=== PATIENT | male | born 1955 | race Caucasian/White ===

== ENCOUNTER 2017-09-07 18:10 | Observation (INO) | payer BC, SELFPAY ==
[2017-09-07 18:43] LABS: #Basophils 0.1 thou/uL (0.0-0.2); #Eosinphils 0.4 thou/uL (0.0-0.7); #Lymphocytes 1.4 thou/uL (1.20-3.40); #Monocytes 0.9 thou/uL (0.11-0.59); #Neutrophils 6.2 thou/uL (1.40-6.50); %Basophils 0.6 % (0.0-1.0); %Eosinophils 4.7 % (0.0-10.0); %Lymphocytes 16.1 % (21.0-51.0); %Monocytes 9.8 % (0.0-10.0); Hematocrit 49.2 % (42.0-52.0); Mean Platelet Volume 7.2 fL (7.4-10.4); Red Blood Cell (RBC) Count 5.49 mill/uL (4.70-6.10); White Blood Cell (WBC) Count 8.9 thou/uL (4.8-10.8)
[2017-09-07 19:04] LABS: ALT (SGPT) 24 U/L (8-55); AST (SGOT) 24 U/L (5-34); Alkaline Phosphatase 80 U/L (40-150); Anion Gap 13 mmol/L (10-20); BUN (Urea Nitrogen) 18 mg/dL (8.4-25.7); Bilirubin, Total 0.8 mg/dL (0.2-1.2); Calc. Creatinine Clearance 0 mL/min (70-130); Carbon Dioxide 25 mmol/L (23-31); Chloride 103 mmol/L (98-107); Estimated GFR-MDRD 72; Globulin 3.2 g/dL (2.4-3.5); Protein, Total 7.3 g/dL (5.8-8.1)
[2017-09-07 19:10] LABS: Troponin I Less than 0.010 ng/mL (< 0.028)
[2017-09-07] MEDS ORDERED: Nitroglycerin 0.4 MG TAB (25 Tab Bottle) ONE (19:28)
--- NOTE | 2017-09-07 19:40 | RAD ---
PORTABLE CHEST: 09/07/17 COMPARISON: 06/27/17 study. HISTORY: Crushing chest pain. Heart size and mediastinum are within normal limits. The lungs are clear of infiltrates. No signific ant bony findings. IMPRESSION: No active intrathoracic disease. POS: [facility]
[2017-09-07 21:04] LABS: PTT 29.2 SEC (22.9-36.1); Prothrombin Time 13.7 SEC (12.0-14.7)
[2017-09-07 21:09] LABS: CK (CPK) 106 U/L (30-200); Lipase 22 U/L (8-78)
[2017-09-07 22:28] LABS: Troponin I Less than 0.010 ng/mL (< 0.028)
[2017-09-07] MEDS ORDERED: Acetaminophen 325 MG TAB PO PRN (22:51)
[2017-09-07] MEDS ORDERED: Ondansetron ODT 4 MG TAB PO PRN (22:51)
[2017-09-07] MEDS ORDERED: Nitroglycerin 0.4 MG TAB (25 Tab Bottle) PO PRN (22:51)
[2017-09-07] MEDS ORDERED: Bisacodyl 5 MG TAB PO PRN (22:51)
[2017-09-07 23:19] LABS: Hemoglobin A1c 4.9 % (4.0-6.0)
[2017-09-07 23:20] VITALS: BMI 23.7
[2017-09-07 23:22] LABS: Magnesium 2.2 mg/dL (1.6-2.6)
[2017-09-07 23:25] LABS: Phosphorus 3.4 mg/dL (2.3-4.7)
[2017-09-08 00:50] LABS: Troponin I Less than 0.010 ng/mL (< 0.028)
--- NOTE | 2017-09-08 03:10 | HP-2 ---
CODE STATUS: FULL. PRIMARY CARE PHYSICIAN: [facility]. ATTENDING: Dr. Smith. PGY1: Bernardino Geller MD CHIEF COMPLAINT: Chest pain. HISTORY OF PRESENT ILLNESS: This is a 62-year-old male that presents with chest pain that began around 1500 today. He states he was sitting in his chair and had an intense pressure that came over his left chest. He became diaphoretic and his vision became blurry. He states he took a nitro and it helped the pain. The same episode happened 30 minutes later, he took another nitro and then he called EMS. He states that he still has slight pain that comes and goes at times. He has no other complaints at this time. He did have a recent stent that was placed in 04/2017 and he has had a vague chest pain that has been present since that time, but today it is different. PAST MEDICAL HISTORY: significant for CAD with stent placement in 04/2017, hyperlipidemia, and hypertension. PAST SURGICAL HISTORY: Cholecystectomy and the stent placement in 04/2017. ALLERGIES: No known drug allergies. MEDICATIONS: Atorvastatin 10 mg, Effient 10 mg, aspirin 81 mg, and HCTZ 25 mg. FAMILY HISTORY: Significant for hypertension. SOCIAL HISTORY: The patient is a current everyday chewing tobacco user that chews between half to one can per day. He denies any alcohol or drug use. REVIEW OF SYSTEMS: General: He does admit to chills. He denies any fevers, appetite changes, night sweats, or fatigue. Eyes: He does admit to blurry vision changes during the pain along with left eye pain during the episode. ENT : Denies nasal congestion, rhinorrhea. He does admit to a sore throat. Respiratory: Denies cough, congestion, shortness of breath. Cardiovascular: Does admit to chest pains. He denies any palpitations, edema, orthopnea. Gastrointestinal: He admits to nausea. Denies any vomiting, diarrhea, abdominal pain, or GI bleeding. He does admit to constipation. Genitourinary: Denies incontinence, dysuria. Skin: Denies any rashes, lesions. Musculoskeletal: Denies any pain, tenderness, stiffness, swelling to the joints. Neurologic: Denies any weakness, numbness, syncope or seizures. Psychiatric: He denies anxiety or depression. PHYSICAL EXAMINATION: VITAL SIGNS: Blood pressure was 110/73, pulse 71, respiration 16, temperature max 97.4, pulse ox 99% on room air, current weight is 80 kilos. GENERAL: He is alert and oriented x4. He is appropriately interactive. HEENT: PERRLA. Conjunctivae within normal limits. ENT: Nasal mucosa and oropharynx within normal limits. He looks like he has poor dentition with multiple teeth missing. NECK: Supple, without lymphadenopathy, without thyromegaly. CARDIOVASCULAR: Regular rate and rhythm, no murmur, no gallops. Radial and pedal pulses equal bilaterally. RESPIRATORY: Normal effort, no retractions, clear lungs to auscultation bilaterally. SKIN: Warm and dry. No cyanosis. No lesions. ABDOMEN: Soft, nontender to palpation. Bowel sounds are present x4. No mass or distention. EXTREMITIES: No clubbing, cyanosis, or edema. MUSCULOSKELETAL: Structure, tone. Muscle strength and range of motion within normal limits. NEUROLOGIC: No focal neurologic deficits. Sensation was within normal limits. Cranial nerves II through XII are grossly intact. GCS was 15. PSYCHIATRIC: Appropriate. LABORATORY DATA: White blood cell count 8.9, platelet count 219, hemoglobin 16.6, hematocrit 49.2. Sodium 137, potassium 3.9, chloride 103, bicarbonate 25 , BUN 18, creatinine 1.04, glucose 89, calcium 9.0, total protein 7.3, albumin 4.1, total bilirubin 0.8, AST 24, ALT 24, alkaline phosphatase 80. CK-MB was 2.3, troponin I was less than 0.01. EKG showed normal sinus rhythm. Chest x- ray showed nothing acute. ASSESSMENT AND PLAN: A 62-year-old male with past medical history significant for stent placement in April, presents with: 1. Possible unstable angina. We will trend his troponins x2. Admit him to tele monitoring. Consider cardiology consult in the morning for a stress versus a catheterization given aspirin and nitro. Get a TSH, a BNP, a mag, and a phos, and requests his records from [facility], where he was scheduled to have a catheterization on 09/19. 2. Coronary artery disease, status post stent placement. We will continue his statin and increase that to a high-intensity statin therapy. Continue the aspirin, continue the Effient, but we will hold that in the morning depending on what they decide to do for procedure. 3. Hyperlipidemia. We will continue statin. We will increase his statin to the intensive therapy actually if you want to cross out, continue statin. 4. Hypertension. Continue his home meds. 5. Tobacco abuse. He is advised to quit and will offer him a nicotine patch. 6. Constipation. We will give him a laxative as needed, but he said he did not want to take any medicine at this time. DISPOSITION LENGTH OF HOSPITAL STAY: We will observe in 1 day. Symptomatic medication will be provided. History and physical exam as well as management have been discussed with Dr. Smith. Patient seen by me on rounds with residents. I agree with hodgson portions of H&P above. Additional information is in handwritten note in the chart. LIV AWAD
[2017-09-08 04:55] LABS: #Eosinphils 0.5 thou/uL (0.0-0.7); #Monocytes 0.9 thou/uL (0.11-0.59); #Neutrophils 5.2 thou/uL (1.40-6.50); %Basophils 0.4 % (0.0-1.0); %Eosinophils 5.9 % (0.0-10.0); %Lymphocytes 23.3 % (21.0-51.0); Mean Platelet Volume 7.3 fL (7.4-10.4); Red Blood Cell (RBC) Count 5.22 mill/uL (4.70-6.10); White Blood Cell (WBC) Count 8.6 thou/uL (4.8-10.8)
[2017-09-08 05:16] LABS: Anion Gap 7 mmol/L (10-20); BUN (Urea Nitrogen) 18 mg/dL (8.4-25.7); Calc. Creatinine Clearance 84 mL/min (70-130); Calcium 9.1 mg/dL (7.8-10.44); Carbon Dioxide 31 mmol/L (23-31); Chloride 100 mmol/L (98-107); Cholesterol 102 mg/dl (< 200 Desired); Estimated GFR-MDRD 78; LDL Cholesterol, Calculated 53 mg/dL
--- NOTE | 2017-09-08 05:53 | PDOC.FM ---
- Subjective Subjective: Patient doing well this morning, has not had any more of the substernal chest pain that he had last night. States he wants to leave as soon as possible. Otherwise no concerns, no acute events since admission. Denies fever, chills, dyspnea, n/v/d. Endorses constipation. - Objective MAR Reviewed: Yes Vital Signs & Weight: Vital Signs (12 hours) Temp Pulse Resp BP Pulse Ox 09/08/17 05:34 97.9 F 68 16 122/77 96 09/07/17 22:51 95 09/07/17 22:14 97.9 F 59 L 16 112/71 95 09/07/17 22:05 97.9 F 59 L 16 Weight Weight 77.61 kg I&O: 09/06/17 09/07/17 09/08/17 06:59 06:59 06:59 Intake Total 240 Balance 240 Result Diagrams: 09/08/17 04:21 09/08/17 04:21 EKG Reviewed by me: Yes (NSR) Radiology Reviewed by me: Yes <Artem Wilkerson - Last Filed: 09/08/17 07:41> - Objective Vital Signs & Weight: Vital Signs (12 hours) Temp Pulse Resp BP Pulse Ox 09/08/17 05:34 97.9 F 68 16 122/77 96 09/07/17 22:51 95 09/07/17 22:14 97.9 F 59 L 16 112/71 95 09/07/17 22:05 97.9 F 59 L 16 Weight Weight 171 lb 1.6 oz I&O: 09/07/17 09/08/17 09/09/17 06:59 06:59 06:59 Intake Total 240 Balance 240 Result Diagrams: 09/08/17 04:21 09/08/17 04:21 <Bautista Smith - Last Filed: 09/08/17 08:21> Phys Exam - Physical Examination Constitutional: NAD HEENT: moist MMs, sclera anicteric Neck: no JVD, supple, full ROM Respiratory: no wheezing, no rales, no rhonchi, clear to auscultation bilateral Cardiovascular: RRR, no significant murmur, no rub Gastrointestinal: soft, non-tender, no distention, positive bowel sounds Musculoskeletal: no edema, pulses present Neurological: non-focal, moves all 4 limbs Psychiatric: normal affect, A&O x 3 <Artem Wilkerson - Last Filed: 09/08/17 07:41> Dx/Plan (1) Unstable angina Status: Acute Plan: Suspicious for unstable angina -Consulting cardiology this morning -ASA, nitro -TSH was normal, BNP normal (2) CAD (coronary artery disease) Code(s): I25.10 - ATHSCL HEART DISEASE OF [place] CORONARY ARTERY W/O ANG PCTRS Status: Acute Plan: statin, asa, holding effient today (3) Hyperlipidemia Code(s): E78.5 - HYPERLIPIDEMIA, UNSPECIFIED Status: Acute Plan: Cont statin, asa -holding effient today (4) Hypertension Code(s): I10 - ESSENTIAL (PRIMARY) HYPERTENSION Status: Acute Plan: NPO currently, BP currently 110/73 Consulting cardiology, will follow recs -will likely start home meds today (5) Constipated Code(s): K59.00 - CONSTIPATION, UNSPECIFIED Status: Acute Plan: Laxative as needed (6) Tobacco abuse Code(s): Z72.0 - TOBACCO USE Status: Acute Plan: Recommended cessation <Artem Wilkerson - Last Filed: 09/08/17 07:41> Attending Addendum - Attending Addendum I personally evaluated the patient and discussed the management with Dr. Wilkerson I agree with the History, Examination, Assessment and Plan documented above. <Bautista Smith - Last Filed: 09/08/17 08:21>
[2017-09-08 08:27] VITALS: TEMP 97.5
[2017-09-08 11:45] VITALS: BP 126/83
--- NOTE | 2017-09-08 17:07 | CON ---
DATE OF CONSULTATION: 09/08/2017 CARDIOLOGY CONSULTATION REASON FOR CONSULTATION: Chest pain. HISTORY OF PRESENT ILLNESS: Mr. Simmons is a very pleasant 62-year-old white gentleman, who comes to the hospital for chest pain. He was at home and felt sudden onset of chest tightness in the mid sternal area with diaphoresis, so he decided to come in. He took nitroglycerin pill sublingual and the pain went away within a minute. He had the pain again in 30 minutes later and that is when he decided to come in. He has been pain-free since he was admitted and he ruled out with 3 negative en zymes. He does have a history of coronary artery disease. He had a heart catheterization back in [facility] of this year in [place] by [facility]. He stented an OM3 at a bifurcation and jailed a branch of the OM3, but had good blood flow at the end of the study. He states that the symptoms he had at that time never really got better and he continued to have chest pain and is actually was scheduled to have a heart catheterization to reevaluate the stent and the rest of his arteries sometime in [facility]. He recently moved to the [facility] to live with his daughter and wants to establish care [facility] with a shearing machine operator. PAST MEDICAL HISTORY: 1. Coronary artery disease as above. 2. Hyperlipidemia. 3. Hypertension. PAST SURGICAL HISTORY: 1. Cholecystectomy. 2. Stent placement as above. OUTPATIENT MEDICATIONS: 1. Atorvastatin 10 mg a day. 2. Effient 10 mg a day. 3. Aspirin 81 mg a day. 4. Hydrochlorothiazide 25 mg a day. ALLERGIES: No known drug allergies. He did have a reaction to AMLODIPINE, he had the leg swelling. FAMILY HISTORY: Hypertension, otherwise noncontributory. SOCIAL HISTORY: He chews tobacco every day. No alcohol or drug use. REVIEW OF SYSTEMS: A 12-point review of systems was done and is all negative unless stated in the h istory of present illness. PHYSICAL EXAMINATION: VITAL SIGNS: Temperature 97.5, pulse 66, respiration rate 18, satting 95% on room air, blood pressu re 126/83. GENERAL: Awake, alert, oriented x3, in no distress. HEENT: Normocephalic, atraumatic. NECK: Supple. LUNGS: Clear. CARDIOVASCULAR: S1, S2, no S3 or S4, no murmurs or rubs. ABDOMEN: Soft, positive bowel sounds. EXTREMITIES: No edema. SKIN: Warm and dry. LABORATORY WORK: Reviewed. Troponin is negative x3. CBC is unremarkable. Coagulations were unrem arkable and CMP was normal. LDL was 53, HDL was 30. Lipase was normal. Triglycerides of 94. ASSESSMENT AND PLAN: 1. Chest pain: Concerning for angina. He has stable angina, which may be related to the jailed ob tuse marginal or the stent that he recently had, it would be very unlikely that the stent is a probl em as he had a drug-eluting stent. He has a Resolute 3.0 x26 mm placed in that obtuse marginal. We recommended to start Imdur for medical management of his angina and do a heart catheterization. He would like to go home today and set this up as an outpatient. We will plan on doing this in the week or two. He would like to transfer his care over here as he lives here now and is really mary d to keep driving to [place]. We will plan on scheduling him for a heart catheterization in the next [place] or two as he would like to do it as an outpatient. 2. He should be able to be discharged home today on a new regimen Imdur 30 mg a day only and stop t he hydrochlorothiazide, continue Effient, continue aspirin and statin. Thank you for letting us participate in the care of your patient. We will sign off for now.
--- NOTE | 2017-09-08 21:55 | DIS-2 ---
DATE OF ADMISSION: 09/07/2017 DATE OF DISCHARGE: 09/08/2017 RESIDENT: Dr. Artem Wilkerson. ADMITTING ATTENDING: Dr. Smith. DISCHARGE ATTENDING: Dr. Smith. CONSULTATIONS: Cardiology on 09/08/2017, Dr. Castillo. PROCEDURES: Chest x-ray: Impression: No acute intrathoracic disease. PRIMARY DIAGNOSIS: Chest pain, concerning for angina. SECONDARY DIAGNOSES: 1. Hypertension. 2. Hyperlipidemia. 3. Coronary artery disease. 4. Tobacco abuse. DISCHARGE MEDICATIONS: 1. Aspirin 81 mg p.o. daily. 2. Effient 10 mg p.o. daily. 3. Atorvastatin calcium 10 mg p.o. daily. NEW HOME MEDICATIONS: 1. Isosorbide mononitrate. 2. Imdur ER 30 mg p.o. daily. 3. Nitroglycerin 0.4 mg p.o. q.5 minute p.r.n. DISCONTINUED MEDICATIONS: Hydrochlorothiazide 25 mg p.o. daily. HISTORY OF PRESENT ILLNESS AND HOSPITAL COURSE: Mr. Esdras Simmons is a 62-year-old male who pres ented with chest pain that began around 3:00 the day of admission on 09/07/2017. He states that he was sitting in his chair and had intense pressure that came over his left chest. He became diaphore tic and his vision became blurry. States that he took nitro and it improved the pain. He had the s mary type of episode happened 30 minutes later, he took another nitro and called EMS. He states that he currently still has slight pain that comes and goes at times. He did have a recent stent placed in 04/2017 and he has had vague chest pain that has been present since that time, but today his yamileth n is different. On admission, his blood pressure was 110/73, pulse 71, respiratory rate 16, T-max 9 7.4, pulse ox 99% on room air. Physical exam was unremarkable. Labs were significant for troponin less than 0.01. CK-MB was 2.3. EKG showed normal sinus rhythm. Chest x-ray showed no acute cardiopulmonary process. Cardiology w as consulted. Dr. Castillo stated that it is very unlikely that the stent is the problem, because he has had a drug-eluting stent placed. Dr. Castillo recommended starting Imdur for medical management a nd to get the heart catheterization done. The patient would like to accept the heart catheterizatio n with Dr. Castillo as he does not want to keep driving back and forth to [place] where his heart cathete rization is already scheduled. His new regimen will be Imdur 30 mg a day and stopping the hydrochlo rothiazide, while also continuing the Effient, aspirin, and statin. Patient was cleared for dischar ge from a cardiac standpoint on 09/08/2017 and he was in agreement with the plan to follow up outpat ient and do a heart catheterization scheduled. DISPOSITION: Guarded. DISCHARGE INSTRUCTIONS: 1. Location: Home. 2. Diet: Heart healthy diet. 3. Activity: As tolerated. 4. Followup: Follow up with Dr. Castillo on outpatient basis and primary care provider within 1-2 we eks.
== END 2017-09-08 14:55 | disposition home or self-care (01) ==
LOC: ERS 18:10 → 2SW 20:45
PROVIDERS: ADMIT Internal Medicine; ATTEND Internal Medicine
DX: R07.89 Other chest pain (principal); I10 Essential (primary) hypertension; E78.5 Hyperlipidemia, unspecified; I25.10 Atherosclerotic heart disease of native coronary artery without angina pectoris; F17.220 Nicotine dependence, chewing tobacco, uncomplicated; Z79.82 Long term (current) use of aspirin; Z79.899 Other long term (current) drug therapy; Z95.5 Presence of coronary angioplasty implant and graft; Z90.49 Acquired absence of other specified parts of digestive tract
CPT/HCPCS: 36415; 71010; 80048; 80053; 80061; 82553; 83036; 83690; 83735; 83880; 84100; 84443; 84484; 85025; 85610; 85730; 93005; 94760; G0378

== ENCOUNTER 2018-08-25 13:14 | Emergency (ER) | payer MEDICARE ==
[2018-08-25 13:58] LABS: #Eosinphils 0.1 thou/uL (0.0-0.7); #Monocytes 0.7 thou/uL (0.11-0.59); #Neutrophils 9.4 thou/uL (1.40-6.50); %Basophils 0.2 % (0.0-1.0); %Eosinophils 1.3 % (0.0-10.0); %Lymphocytes 8.7 % (21.0-51.0); %Monocytes 5.9 % (0.0-10.0); %Neutrophils 83.8 % (42.0-75.0); Hemoglobin 17.6 g/dL (14.0-18.0); Mean Corpuscular HGB CONC 32.5 g/dL (32.0-36.0); Mean Corpuscular Hemoglobin 29.8 pg (27.0-31.0); Mean Corpuscular Volume 91.5 fL (78.0-98.0); Platelet Count 196 thou/uL (130-400); RBC Distribution Width 12.3 % (11.5-14.5); White Blood Cell (WBC) Count 11.2 thou/uL (4.8-10.8)
[2018-08-25 14:16] LABS: Bilirubin Negative (Negative); Blood, Urine Large (Negative); Clarity CLOUDY (Clear); Glucose, Urine (Dipstick) Negative (Negative); Leukocyte Trace (Negative); Nitrite Negative (Negative); Protein, Urine (Dipstick) Trace mg/dL (Neg-Trace); Urobilinogen 0.2 mg/dL (0.2-1.0)
[2018-08-25 14:19] LABS: ALT (SGPT) 23 U/L (8-55); AST (SGOT) 19 U/L (5-34); Albumin 4.2 g/dL (3.4-4.8); Alkaline Phosphatase 72 U/L (40-150); Anion Gap 12 mmol/L (10-20); BUN (Urea Nitrogen) 15 mg/dL (8.4-25.7); Bilirubin, Total 0.9 mg/dL (0.2-1.2); Calc. Creatinine Clearance 0 mL/min (70-130); Calcium 9.2 mg/dL (7.8-10.44); Carbon Dioxide 26 mmol/L (23-31); Chloride 103 mmol/L (98-107); Estimated GFR-MDRD 64; Glucose 92 mg/dL (80-115); Lipase 34 U/L (8-78); Protein, Total 7.2 g/dL (5.8-8.1); Sodium 137 mmol/L (136-145)
[2018-08-25 14:21] LABS: Bacteria/HPF None Seen HPF (None Seen); Hyaline Casts/LPF 0-3 HYALINE CAST LPF (0-3 Hyaline); Pathc Cast-AUWi Flag 0.29 (0-2.49); RBC/HPF GREATER THAN 50-TNTC HPF (0-3); Squamous Epithelial None Seen HPF (0-3); WBC/HPF 0-3 HPF (0-3)
--- NOTE | 2018-08-25 14:23 | CT ---
CT ABDOMEN AND PELVIS NONCONTRAST: HISTORY: Right flank pain. FINDINGS: There is mild distention of the right renal collecting system to the level of a 0.7 cm calculus at th e right ureteropelvic junction. The right ureter beyond this point is decompressed along with the le ft renal collecting system, ureter, and urinary bladder. A 0.2 cm calculus is present within a nondi lated calyx at the superior pole left kidney. Lack of contrast limits evaluation for other abnormalities. Dystrophic calcification within the pros doherty gland. IMPRESSION: 1. Partial obstruction at a 7 mm right ureteropelvic junction calculus. 2. Tiny nonobstructing left renal calculus. POS: [facility]
== END 2018-08-25 14:53 | disposition home or self-care (01) ==
LOC: ERS 13:14
DX: N13.2 Hydronephrosis with renal and ureteral calculous obstruction (principal); I10 Essential (primary) hypertension; E78.00 Pure hypercholesterolemia, unspecified; F17.220 Nicotine dependence, chewing tobacco, uncomplicated; Z79.899 Other long term (current) drug therapy; Z79.82 Long term (current) use of aspirin
CPT/HCPCS: 36415; 74176; 80053; 81003; 81015; 83690; 85025

== ENCOUNTER 2018-08-27 10:55 | Day surgery (SDC) | payer MEDICARE ==
[2018-08-27 12:26] LABS: Anion Gap 12 mmol/L (10-20); BUN (Urea Nitrogen) 16 mg/dL (8.4-25.7); Calc. Creatinine Clearance 0 mL/min (70-130); Calcium 8.8 mg/dL (7.8-10.44); Carbon Dioxide 25 mmol/L (23-31); Chloride 93 mmol/L (98-107); Estimated GFR-MDRD 42; Glucose 77 mg/dL (80-115); Potassium 3.7 mmol/L (3.5-5.1); Sodium 126 mmol/L (136-145)
[2018-08-27] MEDS ORDERED: Iothalamate Meglumine 60% 50 ML VIAL FS ONE (12:33)
[2018-08-27] MEDS ORDERED: Fentanyl 100 MCG/2 ML VIAL ONE (12:35)
[2018-08-27] MEDS ORDERED: Sodium Chloride 0.9% 100 ML ONE (12:44)
[2018-08-27] MEDS ORDERED: CEFAZOLIN 1 GM VIAL ONE (12:44)
[2018-08-27] MEDS ORDERED: Metoclopramide HCl 10 MG/2 ML VIAL ONE (13:24)
[2018-08-27] MEDS ORDERED: Succinylcholine Chloride 20 MG/ML 10 ml SYRINGE FS ONE (13:24)
[2018-08-27] MEDS ORDERED: Dexamethasone 20 MG/5 ML VIAL ONE (13:24)
[2018-08-27] MEDS ORDERED: Lidocaine 1% PF 5 ML VIAL ONE (13:24)
[2018-08-27] MEDS ORDERED: PROPOFOL 200 MG/20 ML VIAL ONE (13:24)
[2018-08-27] MEDS ORDERED: ePHEDrine/0.9% NaCl/PF SYRINGE 50 mg/10 ml ONE (13:24)
[2018-08-27] MEDS ORDERED: Ondansetron HCl/PF 4 MG/2 ML Vial ONE (13:24)
[2018-08-27] MEDS ORDERED: Phenazopyridine HCl 97.5 MG TABLET ONE (14:39)
--- NOTE | 2018-08-28 08:25 | OP ---
DATE OF OPERATION: 08/27/2018 PREOPERATIVE DIAGNOSIS: Right ureteropelvic junction stone. POSTOPERATIVE DIAGNOSIS: Right ureteropelvic junction stone. PROCEDURE: Cystoscopy, right retrograde pyelogram, insertion of right ureteral stent 6 x 26. COMPLICATIONS: None. DRAIN: Internal double-J. ANESTHESIA: General with endotracheal tube. ESTIMATED BLOOD LOSS: Minimal. SPECIMENS: Urine from the right renal pelvis for culture. FINDINGS: Adequate placement of right stent with old bloody urine noted once wire placed. INDICATIONS: The patient is a 63-year-old male who was seen urgently in the office for an obstructing UPJ stone with renal colic and nausea and vomiting who was admitted that same day for urgent stent placement. DESCRIPTION OF PROCEDURE: The patient was brought into the room by Anesthesia, laid on the table in supine position. After receiving general anesthetic, legs placed in lithotomy position. Perineum was prepped and draped in sterile fashion. Using a 21-Moldovan cystoscope traversed the urethra and the bladder was inspected. The ureteral orifices were in normal position. There were no lesions noted. The left was intubated with a Pollack catheter and advanced up to the level of and beyond the stone into the renal pelvis. Hydronephrotic drip was not noted. I was able to extract approximately 5 mL of pink-tinged urine. A retrograde pyelogram was performed. Only mild hydro was noted. A wire was left in place. The Pollack catheter removed and then a 6 x 26 double- J was placed over the wire with good coil visualized in the proximal portion of the renal pelvis near the imani, but not into the upper pole and a good coil was visualized in the bladder itself via cystoscopy. The scope was broken apart , bladder drained and then removed in its entirety. The patient tolerated the procedure well and was then awakened and transferred to PACU in stable condition. DELMI
== END 2018-08-27 15:47 | disposition home or self-care (01) ==
LOC: SDC 10:55
PROVIDERS: ATTEND Urology
PROC: 0T768DZ Dilation of Right Ureter with Intraluminal Device, Via Natural or Artificial Opening Endoscopic (ICD-10-PCS; principal; 2018-08-27)
DX: N13.2 Hydronephrosis with renal and ureteral calculous obstruction (principal); N40.1 Benign prostatic hyperplasia with lower urinary tract symptoms; R35.0 Frequency of micturition; R35.1 Nocturia; R39.11 Hesitancy of micturition; R39.12 Poor urinary stream; I10 Essential (primary) hypertension; E78.00 Pure hypercholesterolemia, unspecified; I25.10 Atherosclerotic heart disease of native coronary artery without angina pectoris; Z79.82 Long term (current) use of aspirin; Z79.899 Other long term (current) drug therapy
CPT/HCPCS: 52332; 76000; 80048; 87070; 87205; 93005; G0103; 93010; C1758; J0690; J1100; J2001; J2405; J2704; J2765; J3010; J7050; Q9961

== ENCOUNTER 2018-09-03 11:23 | Day surgery (SDC) | payer MEDICARE ==
[2018-09-02 11:33] VITALS: BMI 25.4
[2018-09-03] MEDS ORDERED: CEFAZOLIN/Water 2 GM/20 ML SYRINGE ONE (12:25)
[2018-09-03 12:28] LABS: Anion Gap 11 mmol/L (10-20); BUN (Urea Nitrogen) 16 mg/dL (8.4-25.7); Calc. Creatinine Clearance 84 mL/min (70-130); Calcium 9.1 mg/dL (7.8-10.44); Carbon Dioxide 26 mmol/L (23-31); Chloride 106 mmol/L (98-107); Estimated GFR-MDRD 73; Glucose 84 mg/dL (80-115); Potassium 4.7 mmol/L (3.5-5.1); Sodium 138 mmol/L (136-145)
--- NOTE | 2018-09-03 13:18 | RAD ---
ABDOMEN 1 VIEW: HISTORY: Preoperative exam. FINDINGS: Nonspecific bowel gas pattern. Surgical clips in the right upper quadrant, compatible with cholecyst ectomy. Double-J right ureteral stent is identified and appears to be appropriately positioned. Vina el gas pattern is nonspecific. There are degenerative changes in both hip joints. No evidence of calculi along the course of the ri ght ureteral stent or overlapping the right renal silhouette. IMPRESSION: Aporopriate positioning of a double J right ureteral stent. POS: [facility]
[2018-09-03] MEDS ORDERED: Furosemide 20 MG/2 ML VIAL ONE (13:31)
[2018-09-03] MEDS ORDERED: Fentanyl 100 MCG/2 ML VIAL ONE (14:05)
[2018-09-03] MEDS ORDERED: HYDROcodone/Acetaminophen 5/325 mg Tablet ONE ×2 (16:22→18:00)
[2018-09-03] MEDS ORDERED: Morphine 2 MG/ML SYRINGE ONE ×4 (16:27→17:23)
[2018-09-03] MEDS ORDERED: diphenhydrAMINE 50 MG/ML VIAL ONE (16:55)
[2018-09-03] MEDS ORDERED: Lidocaine 1% PF 5 ML VIAL ONE (17:01)
[2018-09-03] MEDS ORDERED: PROPOFOL 200 MG/20 ML VIAL ONE (17:01)
[2018-09-03] MEDS ORDERED: Ondansetron HCl/PF 4 MG/2 ML Vial ONE (17:01)
[2018-09-03] MEDS ORDERED: PHENYLEPHRINE-NS 100 MCG/ML 10 ML SYRINGE ONE (17:01)
[2018-09-03] MEDS ORDERED: ePHEDrine/0.9% NaCl/PF SYRINGE 50 mg/10 ml ONE (17:01)
[2018-09-03] MEDS ORDERED: Glycopyrrolate 0.2 MG/ML 5 ML SYRINGE ONE (17:01)
--- NOTE | 2018-09-03 23:11 | OP ---
DATE OF SERVICE: 09/03/2018 PREOPERATIVE DIAGNOSIS: Right ureteropelvic junction stone. POSTOPERATIVE DIAGNOSIS: Right ureteropelvic junction stone. PROCEDURE: Right extracorporeal shock lithotripsy. SURGEON: Maya Al M.D. ANESTHESIA: General LMA. FINDINGS: Adequate coaptation of the UPJ stone that was wedged and did not migrate. No complications, no blood loss. No drains remaining other than the internal JJ that he had already had placed previously. INDICATIONS: The patient is a 63-year-old male seen urgently in the office after being in the ER at the weekend prior with renal colic. He was having persistent nausea and vomiting and so a stent was placed urgently the week prior and he was set up for definitive stone therapy. We discussed removing the stent if the stone was in the renal pelvis, but if it was wedged were within the ureter and I would leave it for at least 48-72 hours postoperatively. The patient was brought into the room by Anesthesia, laid on the table in supine position, receiving general anesthetic. He was positioned at the lithotripter could identify the stone in multiple planes. Then, a total of 2500 shocks at a maximum power of 5/6 with a maximum rate of 60-90 per minute were delivered. The stone itself did appear to still be wedged at the UPJ area. It expanded that it did not pop into the renal pelvis. So at this point , I left the stent in place and will plan to remove it in the office. Good fragmentation was noted. The patient tolerated the procedure well and was awakened and transferred to PACU in stable condition. DELMI
== END 2018-09-03 19:17 | disposition home or self-care (01) ==
LOC: SDC 11:23
PROVIDERS: ATTEND Urology
PROC: 0TF6XZZ Fragmentation in Right Ureter, External Approach (ICD-10-PCS; principal; 2018-09-03)
DX: N20.0 Calculus of kidney (principal); R35.0 Frequency of micturition; R35.1 Nocturia; R39.12 Poor urinary stream; I10 Essential (primary) hypertension; E78.00 Pure hypercholesterolemia, unspecified; I25.10 Atherosclerotic heart disease of native coronary artery without angina pectoris; F17.290 Nicotine dependence, other tobacco product, uncomplicated; Z79.82 Long term (current) use of aspirin; Z79.899 Other long term (current) drug therapy; Z95.5 Presence of coronary angioplasty implant and graft
CPT/HCPCS: 36415; 74018; 80048; 96374; 96375; J1200; J1940; J2001; J2270; J2405; J2704; J3010

== ENCOUNTER 2018-10-02 16:20 | Outpatient (CLI) | payer MEDICARE ==
--- NOTE | 2018-10-02 18:31 | RAD ---
KUB: 10/02/18 INDICATION: History of UPJ calculus. COMPARISON: Prior exam dated 09/03/18. FINDINGS: Previously seen right ureteral stent has been removed. No suspicious calcification is evident. Bowel gas pattern is unobstructed. No acute osseous abnormality is noted. IMPRESSION: Interval removal of the right sided ureteral stent. No suspicious calcification is evident. POS: [facility]
== END 2018-10-02 16:21 | disposition home or self-care (01) ==
LOC: RAD 16:20
PROVIDERS: ATTEND Urology
DX: N20.1 Calculus of ureter (principal)
CPT/HCPCS: 74018

== ENCOUNTER 2022-03-09 08:05 | Observation (INO) | payer MEDICARE ==
[2022-03-09] MEDS ORDERED: Nitroglycerin 2% Ointment 1 INCH/1 GM Packet ONE (08:29)
[2022-03-09] MEDS ORDERED: Aspirin Chewable 81 MG TAB ONE (08:29)
[2022-03-09 08:40] LABS: #Eosinphils 0.2 thou/uL (0.0-0.7); #Lymphocytes 0.8 thou/uL (1.20-3.40); #Monocytes 0.5 thou/uL (0.11-0.59); %Basophils 0.5 % (0.0-1.0); %Eosinophils 4.3 % (0.0-10.0); %Lymphocytes 14.1 % (21.0-51.0); %Monocytes 9.4 % (0.0-10.0); %Neutrophils 71.7 % (42.0-75.0); Hemoglobin 16.8 g/dL (14.0-18.0); Mean Corpuscular HGB CONC 33.3 g/dL (32.0-36.0); Mean Corpuscular Hemoglobin 30.4 pg (27.0-31.0); Mean Corpuscular Volume 91.4 fL (78.0-98.0); Mean Platelet Volume 7.1 fL (7.4-10.4); Platelet Count 224 thou/uL (130-400); RBC Distribution Width 12.2 % (11.5-14.5); Red Blood Cell (RBC) Count 5.52 mill/uL (4.70-6.10); White Blood Cell (WBC) Count 5.6 thou/uL (4.8-10.8)
[2022-03-09 08:56] LABS: ALT (SGPT) 16 U/L (8-55); AST (SGOT) 23 U/L (5-34); Albumin 4.3 g/dL (3.4-4.8); Alkaline Phosphatase 66 U/L (40-110); Anion Gap 13 mmol/L (10-20); BUN (Urea Nitrogen) 13 mg/dL (8.4-25.7); Bilirubin, Total 0.9 mg/dL (0.2-1.2); Calc. Creatinine Clearance 0 mL/min (70-130); Calcium 9.1 mg/dL (7.8-10.44); Carbon Dioxide 24 mmol/L (23-31); Chloride 105 mmol/L (98-107); Globulin 2.9 g/dL (2.4-3.5); Glucose 82 mg/dL (80-115); Lipase 27 U/L (8-78); Potassium 4.5 mmol/L (3.5-5.1); Protein, Total 7.2 g/dL (5.8-8.1); Sodium 137 mmol/L (136-145)
[2022-03-09] MEDS ORDERED: Acetaminophen 500 MG TAB PO PRN (09:34)
[2022-03-09] MEDS ORDERED: Nitroglycerin 0.4 MG TAB (25 Tab Bottle) SL PRN (09:34)
[2022-03-09] MEDS ORDERED: Ondansetron PF 4 MG/2 ML Vial IVP PRN (09:36)
[2022-03-09] MEDS ORDERED: Enoxaparin Sodium 40 MG/0.4 ML SYRINGE SC SCH (09:45)
[2022-03-09 11:52] VITALS: BMI 22.9
[2022-03-09 12:07] LABS: Troponin I Less than 0.010 ng/mL (< 0.028)
[2022-03-09 15:05] LABS: Troponin I Less than 0.010 ng/mL (< 0.028)
[2022-03-09] MEDS ORDERED: Iopamidol-370 76% 500 ML 1 ML ONE (15:13)
[2022-03-09] MEDS: Atorvastatin Calcium 10 MG TAB PO SCH ×2 (20:47→21:05)
[2022-03-09 20:54] LABS: SARS-CoV-2 PCR by NAA Not Detected (NotDetected)
[2022-03-09] MEDS ORDERED: Aspirin 81 mg Enteric Coated Tablet PO SCH (21:00)
[2022-03-09] MEDS ORDERED: Ezetimibe 10 MG TAB PO SCH (21:00)
[2022-03-09] MEDS ORDERED: Lisinopril 10 MG TAB PO SCH (21:00)
[2022-03-09] MEDS ORDERED: Clopidogrel Bisulfate 75 MG TAB PO SCH (21:00)
[2022-03-09] MEDS ORDERED: Spironolactone 25 MG TAB PO SCH (21:00)
[2022-03-10 04:39] LABS: #Eosinphils 0.3 thou/uL (0.0-0.7); #Lymphocytes 0.9 thou/uL (1.20-3.40); #Monocytes 0.6 thou/uL (0.11-0.59); #Neutrophils 3.4 thou/uL (1.40-6.50); %Basophils 0.6 % (0.0-1.0); %Eosinophils 5.5 % (0.0-10.0); %Lymphocytes 17.8 % (21.0-51.0); %Monocytes 11.6 % (0.0-10.0); %Neutrophils 64.6 % (42.0-75.0); Hemoglobin 15.3 g/dL (14.0-18.0); Mean Corpuscular HGB CONC 32.5 g/dL (32.0-36.0); Mean Corpuscular Hemoglobin 29.8 pg (27.0-31.0); Mean Corpuscular Volume 91.7 fL (78.0-98.0); Mean Platelet Volume 7.4 fL (7.4-10.4); Platelet Count 189 thou/uL (130-400); RBC Distribution Width 12.2 % (11.5-14.5); Red Blood Cell (RBC) Count 5.13 mill/uL (4.70-6.10); White Blood Cell (WBC) Count 5.2 thou/uL (4.8-10.8)
[2022-03-10 05:06] LABS: Anion Gap 11 mmol/L (10-20); BUN (Urea Nitrogen) 14 mg/dL (8.4-25.7); Calc. Creatinine Clearance 90 mL/min (70-130); Calcium 8.7 mg/dL (7.8-10.44); Carbon Dioxide 23 mmol/L (23-31); Chloride 106 mmol/L (98-107); Glucose 84 mg/dL (80-115); Potassium 4.1 mmol/L (3.5-5.1); Sodium 136 mmol/L (136-145)
[2022-03-10] MEDS ORDERED: Spironolactone 25 MG TAB PO SCH (08:00)
[2022-03-10] MEDS ORDERED: Aspirin 81 mg Enteric Coated Tablet PO SCH (09:00)
[2022-03-10] MEDS ORDERED: Tamsulosin HCl 0.4 MG CAP PO SCH (09:00)
[2022-03-10] MEDS ORDERED: Enoxaparin Sodium 40 MG/0.4 ML SYRINGE SC SCH (09:00)
[2022-03-10] MEDS ORDERED: Ezetimibe 10 MG TAB PO SCH (09:00)
[2022-03-10] MEDS ORDERED: Clopidogrel Bisulfate 75 MG TAB PO SCH (09:00)
[2022-03-10] MEDS ORDERED: Prasugrel 10 MG TAB PO SCH (09:00)
[2022-03-10 11:44] VITALS: BP 117/66; TEMP 97.8
== END 2022-03-10 13:30 | disposition home or self-care (01) ==
LOC: ERS 08:05 → 2SW 09:31
PROVIDERS: ADMIT Student in an Organized Health Care Education/Training Program; ATTEND Student in an Organized Health Care Education/Training Program
DX: R07.9 Chest pain, unspecified (principal); H53.8 Other visual disturbances; I25.10 Atherosclerotic heart disease of native coronary artery without angina pectoris; E78.5 Hyperlipidemia, unspecified; F17.220 Nicotine dependence, chewing tobacco, uncomplicated; I11.9 Hypertensive heart disease without heart failure; I08.3 Combined rheumatic disorders of mitral, aortic and tricuspid valves; Z79.02 Long term (current) use of antithrombotics/antiplatelets; Z79.82 Long term (current) use of aspirin; Z79.899 Other long term (current) drug therapy; Z95.5 Presence of coronary angioplasty implant and graft; Z20.822 Contact with and (suspected) exposure to COVID-19
CPT/HCPCS: 70450; 71045; 71275; 80048; 80053; 83690; 84484 ×2; 85025 ×2; 93005; 93306; 99285; U0003; U0005; 36415; 96372; G0378; J1650; Q9967

== ENCOUNTER 2022-03-28 09:31 | Outpatient (CLI) | payer MEDICARE | END 2022-03-28 09:32 | disposition home or self-care (01) | LOC: TBSIIMAG 09:31 | PROVIDERS: ATTEND Internal Medicine | DX: R42 Dizziness and giddiness (principal) | CPT/HCPCS: 70551 ==

== ENCOUNTER 2023-01-08 14:10 | Emergency (ER) | payer MEDICARE ==
[2023-01-08] MEDS ORDERED: Acetaminophen 500 MG TAB ONE (16:31)
[2023-01-08] MEDS ORDERED: Ketorolac Tromethamine 30 MG/ML VIAL ONE (16:31)
[2023-01-08 16:37] LABS: #Eosinphils 0.3 thou/uL (0.0-0.7); #Lymphocytes 0.9 thou/uL (1.20-3.40); #Monocytes 0.7 thou/uL (0.11-0.59); #Neutrophils 5.4 thou/uL (1.40-6.50); %Basophils 0.4 % (0.0-1.0); %Eosinophils 3.6 % (0.0-10.0); %Monocytes 9.8 % (0.0-10.0); %Neutrophils 74.2 % (42.0-75.0); Hemoglobin 15.9 g/dL (14.0-18.0); Mean Corpuscular HGB CONC 33.4 g/dL (32.0-36.0); Mean Corpuscular Hemoglobin 30.3 pg (27.0-31.0); Mean Platelet Volume 7.2 fL (7.4-10.4); Platelet Count 208 10x3/uL (130-400); RBC Distribution Width 11.9 % (11.5-14.5); Red Blood Cell (RBC) Count 5.24 mill/uL (4.70-6.10); White Blood Cell (WBC) Count 7.3 10x3/uL (4.8-10.8)
[2023-01-08 16:58] LABS: ALT (SGPT) 17 U/L (8-55); AST (SGOT) 19 U/L (5-34); Albumin 4.5 g/dL (3.4-4.8); Alkaline Phosphatase 73 U/L (40-110); Anion Gap 12 mmol/L (10-20); BUN (Urea Nitrogen) 11 mg/dL (8.4-25.7); Bilirubin, Total 1.1 mg/dL (0.2-1.2); Calc. Creatinine Clearance 0 mL/min (70-130); Calcium 9.5 mg/dL (7.8-10.44); Carbon Dioxide 25 mmol/L (23-31); Chloride 104 mmol/L (98-107); Estimated GFR 87; Globulin 3.1 g/dL (2.4-3.5); Glucose 77 mg/dL (80-115); Potassium 4.4 mmol/L (3.5-5.1); Protein, Total 7.6 g/dL (5.8-8.1); Sodium 137 mmol/L (136-145)
== END 2023-01-08 23:45 | disposition home or self-care (01) ==
LOC: ERS 14:10
DX: M25.512 Pain in left shoulder (principal); I10 Essential (primary) hypertension; E78.00 Pure hypercholesterolemia, unspecified; F17.220 Nicotine dependence, chewing tobacco, uncomplicated; Y93.F2 Activity, caregiving, lifting; Z79.82 Long term (current) use of aspirin
CPT/HCPCS: 36415; 71045; 80053; 83880; 84484; 85025; 93005; 96372; J1885